=== PATIENT | male | born 1945 | race Caucasian/White ===

== ENCOUNTER 2017-03-13 08:14 | Outpatient (CLI) | payer MEDICARE, OTHER ==
[2017-03-13 14:06] LABS: BASOPHILS # (AUTO) 0.1 10^3/uL (0.0-0.1); BASOPHILS % (AUTO) 0.7 %; EOSINOPHILS # (AUTO) 0.2 10^3/uL (0.0-0.7); EOSINOPHILS % (AUTO) 2.4 %; HCT - HEMATOCRIT 49.4 % (42.0-52.0); HGB - HEMOGLOBIN 16.7 g/dL (14.0-18.0); LYMPHOCYTES # (AUTO) 2.2 10^3/uL (1.5-3.5); LYMPHOCYTES % (AUTO) 25.7 %; MEAN CORPUSCULAR HEMOGLOBIN 31.8 pg (27.0-31.0); MEAN CORPUSCULAR HGB CONC 33.9 g/dL (32.0-36.0); MEAN PLATELET VOLUME 8.8 fL (7.4-11.4); MONOCYTES # (AUTO) 0.9 10^3/uL (0.0-1.0); MONOCYTES % (AUTO) 10.3 %; NEUTROPHILS # (AUTO) 5.3 10^3/uL (1.5-6.6); NEUTROPHILS % (AUTO) 60.9 %; NUCLEATED RED BLOOD CELLS AUTO 0.2 /100WBC; RED BLOOD COUNT 5.26 10^6/uL (4.70-6.10); RED CELL DISTRIBUTION WIDTH 13.2 % (12.0-15.0); UNCORRECTED WHITE BLOOD COUNT 8.6 x10^3/uL; WHITE BLOOD COUNT 8.6 x10^3/uL (4.8-10.8)
[2017-03-13 14:52] LABS: ALBUMIN/GLOBULIN RATIO 1.7 (1.0-2.2); BILIRUBIN,TOTAL 1.1 mg/dL (0.2-1.0); BUN - BLOOD UREA NITROGEN 19 mg/dL (6-20); CALCIUM 9.3 mg/dL (8.5-10.3); CARBON DIOXIDE - CO2 26 mmol/L (21-32); CHLORIDE 104 mmol/L (101-111); CHOLESTEROL 181 mg/dL; CREATININE 0.9 mg/dL (0.6-1.2); GFR - MDRD 83 (>89); GLUCOSE 119 mg/dL (70-100); HDL CHOLESTEROL 29 mg/dL; LDL/HDL RATIO 4.5 (<3.6); POTASSIUM 4.3 mmol/L (3.5-5.0); SODIUM 135 mmol/L (135-145); TOTAL PROTEIN 7.1 g/dL (6.7-8.2); TRIGLYCERIDES 107 mg/dL; VLDL CHOLESTEROL 21 mg/dL
[2017-03-13 14:53] LABS: CHOL/HDL RATIO 6.2 (<5.0)
[2017-03-13 15:02] LABS: HEMOGLOBIN A1C 0.75 g/dL
== END 2017-03-13 08:15 | disposition home or self-care (01) ==
LOC: LAB.WCP 08:14
PROVIDERS: ATTEND Physician Assistant Medical
DX: I10 Essential (primary) hypertension (principal); Z51.81 Encounter for therapeutic drug level monitoring; Z79.899 Other long term (current) drug therapy; E78.5 Hyperlipidemia, unspecified; R73.9 Hyperglycemia, unspecified; Z12.5 Encounter for screening for malignant neoplasm of prostate
CPT/HCPCS: 36415; 80053; 80061; 83036; 84443; 85025; G0103; 84153

== ENCOUNTER 2017-09-27 08:00 | Outpatient (CLI) | payer MEDICARE, OTHER ==
[2017-09-27 13:28] LABS: ALBUMIN 4.6 g/dL (3.2-5.5); ALBUMIN/GLOBULIN RATIO 1.7 (1.0-2.2); ALKALINE PHOSPHATASE 35 IU/L (42-121); ALT ALANINE AMINOTRANSFERASE 22 IU/L (10-60); AST ASPARTATE AMINOTRANSFERASE 21 IU/L (10-42); BILIRUBIN,TOTAL 1.1 mg/dL (0.2-1.0); BUN - BLOOD UREA NITROGEN 20 mg/dL (6-20); CALCIUM 9.2 mg/dL (8.5-10.3); CARBON DIOXIDE - CO2 27 mmol/L (21-32); CHLORIDE 104 mmol/L (101-111); CHOL/HDL RATIO 6.3 (<5.0); CHOLESTEROL 157 mg/dL; CREATININE 0.8 mg/dL (0.6-1.2); GFR - MDRD 96 (>89); GLUCOSE 124 mg/dL (70-100); HDL CHOLESTEROL 25 mg/dL; LDL CHOLESTEROL,CALCULATED 113 mg/dL; LDL/HDL RATIO 4.5 (<3.6); SODIUM 137 mmol/L (135-145); TOTAL PROTEIN 7.3 g/dL (6.7-8.2); VLDL CHOLESTEROL 19 mg/dL
[2017-09-27 13:46] LABS: HB2 TOTAL 18.3 g/dL; HEMOGLOBIN A1C 0.69 g/dL; HEMOGLOBIN A1C % 5.6 % (4.6-6.2)
== END 2017-09-27 08:01 ==
LOC: LAB.WCP 08:00
PROVIDERS: ATTEND Family Medicine
DX: E78.5 Hyperlipidemia, unspecified (principal); R73.9 Hyperglycemia, unspecified; Z51.81 Encounter for therapeutic drug level monitoring; Z79.899 Other long term (current) drug therapy
CPT/HCPCS: 36415; 80053; 80061; 83036; 83721

== ENCOUNTER 2017-12-25 08:48 | Outpatient (CLI) | payer MEDICARE, OTHER ==
[2017-12-25 13:07] LABS: ALBUMIN/GLOBULIN RATIO 1.4 (1.0-2.2); ALKALINE PHOSPHATASE 32 IU/L (42-121); ALT ALANINE AMINOTRANSFERASE 20 IU/L (10-60); AST ASPARTATE AMINOTRANSFERASE 24 IU/L (10-42); BILIRUBIN,TOTAL 1.2 mg/dL (0.2-1.0); BUN - BLOOD UREA NITROGEN 22 mg/dL (6-20); CARBON DIOXIDE - CO2 26 mmol/L (21-32); CHLORIDE 105 mmol/L (101-111); CHOL/HDL RATIO 4.2 (<5.0); CHOLESTEROL 147 mg/dL; CREATININE 0.8 mg/dL (0.6-1.2); GFR - MDRD 96 (>89); GLUCOSE 100 mg/dL (70-100); HDL CHOLESTEROL 35 mg/dL; LDL CHOLESTEROL,CALCULATED 98 mg/dL; LDL/HDL RATIO 2.8 (<3.6); SODIUM 137 mmol/L (135-145); TOTAL PROTEIN 6.9 g/dL (6.7-8.2); VLDL CHOLESTEROL 14 mg/dL
[2017-12-25 13:08] LABS: HB2 TOTAL 17.1 g/dL; HEMOGLOBIN A1C 0.58 g/dL; HEMOGLOBIN A1C % 5.3 % (4.6-6.2)
== END 2017-12-25 08:49 ==
LOC: LAB.WCP 08:48
PROVIDERS: ATTEND Family Medicine
DX: R73.9 Hyperglycemia, unspecified (principal); E78.5 Hyperlipidemia, unspecified
CPT/HCPCS: 36415; 80053; 80061; 83036; 83721

== ENCOUNTER 2018-08-30 11:06 | Outpatient (CLI) | payer MEDICARE, OTHER ==
--- NOTE | 2018-08-30 12:31 | XRAY Report ---
Reason: KNEE PAIN,LEFT Procedure Date: 08/30/2018 Accession Number: [id number] / [id number] Procedure: XR - Knee 3 View LT CPT Code: FULL RESULT: EXAM: LEFT KNEE RADIOGRAPHY EXAM DATE: 08/30/2018 11:31 AM. CLINICAL HISTORY: Knee pain, left. COMPARISON: None. TECHNIQUE: 3 views. FINDINGS: Bones: Normal. No fractures or bone lesions. Joints: Normal. No effusion. No subluxations. Soft Tissues: Normal. No soft tissue swelling. IMPRESSION: Normal knee radiography. RADIA
== END 2018-08-30 11:07 | disposition home or self-care (01) ==
LOC: DI 11:06
PROVIDERS: ATTEND Family Medicine
DX: M25.562 Pain in left knee (principal)

== ENCOUNTER 2018-09-20 08:00 | Outpatient (CLI) | payer MEDICARE, OTHER ==
[2018-09-20 13:10] LABS: BASOPHILS # (AUTO) 0.1 10^3/uL (0.0-0.1); EOSINOPHILS # (AUTO) 0.4 10^3/uL (0.0-0.7); EOSINOPHILS % (AUTO) 3.3 %; HGB - HEMOGLOBIN 15.6 g/dL (14.0-18.0); LYMPHOCYTES # (AUTO) 2.1 10^3/uL (1.5-3.5); LYMPHOCYTES % (AUTO) 19.4 %; MEAN CORPUSCULAR HEMOGLOBIN 32.1 pg (27.0-31.0); MEAN CORPUSCULAR HGB CONC 34.2 g/dL (32.0-36.0); MEAN PLATELET VOLUME 9.1 fL (7.4-11.4); MONOCYTES # (AUTO) 0.9 10^3/uL (0.0-1.0); MONOCYTES % (AUTO) 8.5 %; NEUTROPHILS # (AUTO) 7.2 10^3/uL (1.5-6.6); NEUTROPHILS % (AUTO) 67.8 %; PLT - PLATELET COUNT 231 10^3/uL (130-450); RED BLOOD COUNT 4.84 10^6/uL (4.70-6.10); RED CELL DISTRIBUTION WIDTH 13.9 % (12.0-15.0); WHITE BLOOD COUNT 10.6 x10^3/uL (4.8-10.8)
[2018-09-20 13:27] LABS: ALBUMIN 4.4 g/dL (3.2-5.5); ALBUMIN/GLOBULIN RATIO 2.1 (1.0-2.2); ALKALINE PHOSPHATASE 36 IU/L (42-121); ALT ALANINE AMINOTRANSFERASE 22 IU/L (10-60); AST ASPARTATE AMINOTRANSFERASE 21 IU/L (10-42); BILIRUBIN,TOTAL 0.8 mg/dL (0.2-1.0); BUN - BLOOD UREA NITROGEN 24 mg/dL (6-20); CALCIUM 9.1 mg/dL (8.5-10.3); CARBON DIOXIDE - CO2 27 mmol/L (21-32); CHLORIDE 100 mmol/L (101-111); CHOL/HDL RATIO 3.9 (<5.0); CHOLESTEROL 144 mg/dL; CREATININE 0.9 mg/dL (0.6-1.2); GFR - MDRD 83 (>89); GLUCOSE 108 mg/dL (70-100); HDL CHOLESTEROL 37 mg/dL; LDL CHOLESTEROL,CALCULATED 92 mg/dL; LDL/HDL RATIO 2.5 (<3.6); SODIUM 135 mmol/L (135-145); TOTAL PROTEIN 6.5 g/dL (6.7-8.2); VLDL CHOLESTEROL 15 mg/dL
== END 2018-09-20 23:59 | disposition home or self-care (01) ==
LOC: LAB.WCP 08:00
PROVIDERS: ATTEND Family Medicine
DX: E78.5 Hyperlipidemia, unspecified (principal); Z12.5 Encounter for screening for malignant neoplasm of prostate; Z51.81 Encounter for therapeutic drug level monitoring; Z79.899 Other long term (current) drug therapy; I10 Essential (primary) hypertension
CPT/HCPCS: 36415; 80061; G0103; 80053; 83721; 84153; 84443; 85025

== ENCOUNTER 2019-04-24 13:11 | Outpatient (CLI) | payer MEDICARE, OTHER | END 2019-04-24 13:12 | disposition home or self-care (01) | LOC: RT 13:11 | PROVIDERS: ATTEND Internal Medicine Gastroenterology | DX: I10 Essential (primary) hypertension (principal) | CPT/HCPCS: 93005 ==

== ENCOUNTER 2019-04-29 12:47 | Day surgery (SDC) | payer MEDICARE, OTHER ==
[~2019-04-29 12:47] MED LIST: SODIUM/POTASSIUM/MAG SULFATES 354 ML PREP KIT PO SCH
[2019-04-29] MEDS ORDERED: MIDAZOLAM 2 MG/2 ML VIAL IVP ONE (12:48)
[2019-04-29] MEDS ORDERED: fentaNYL 250 MCG/5 ML VIAL IVP ONE (12:48)
[2019-04-29] MEDS ORDERED: LACTATED RINGERS 1,000 ML IV ONE (13:22)
[2019-04-29] MEDS ORDERED: LIDO GARGLE 30 ML BOTTLE ONE (13:23)
[2019-04-29] MEDS ORDERED: LIDO GARGLE 30 ML BOTTLE PO ONE (14:06)
[2019-04-29 15:20] VITALS: BP 114/67
== END 2019-04-29 12:48 | disposition home or self-care (01) ==
LOC: SDS 12:47
PROVIDERS: ATTEND Internal Medicine Gastroenterology
PROC: 0DB68ZZ Excision of Stomach, Via Natural or Artificial Opening Endoscopic (ICD-10-PCS; 2019-04-29)
PROC: 0DB38ZZ Excision of Lower Esophagus, Via Natural or Artificial Opening Endoscopic (ICD-10-PCS; 2019-04-29)
PROC: 0DJD8ZZ Inspection of Lower Intestinal Tract, Via Natural or Artificial Opening Endoscopic (ICD-10-PCS; principal; 2019-04-29 14:15)
PROC: 0DB98ZX Excision of Duodenum, Via Natural or Artificial Opening Endoscopic, Diagnostic (ICD-10-PCS; 2019-04-29 14:15)
DX: Z12.11 Encounter for screening for malignant neoplasm of colon (principal); K21.9 Gastro-esophageal reflux disease without esophagitis; R10.13 Epigastric pain; K29.70 Gastritis, unspecified, without bleeding; K57.30 Diverticulosis of large intestine without perforation or abscess without bleeding; K22.8 Other specified diseases of esophagus; I10 Essential (primary) hypertension; K31.7 Polyp of stomach and duodenum; E78.5 Hyperlipidemia, unspecified; Z85.828 Personal history of other malignant neoplasm of skin; Z87.891 Personal history of nicotine dependence; Z86.010 Personal history of colon polyps
CPT/HCPCS: 43239; 88305; A9270; G0105; J3010; J7120

== ENCOUNTER 2020-02-06 08:00 | Outpatient (CLI) | payer MEDICARE, OTHER ==
[2020-02-06 11:36] LABS: BASOPHILS # (AUTO) 0.1 10^3/uL (0.0-0.1); BASOPHILS % (AUTO) 0.7 %; EOSINOPHILS # (AUTO) 0.2 10^3/uL (0.0-0.7); EOSINOPHILS % (AUTO) 2.3 %; LYMPHOCYTES # (AUTO) 2.3 10^3/uL (1.5-3.5); LYMPHOCYTES % (AUTO) 31.1 %; MEAN CORPUSCULAR HEMOGLOBIN 31.1 pg (27.0-31.0); MEAN CORPUSCULAR HGB CONC 32.7 g/dL (32.0-36.0); MEAN CORPUSCULAR VOLUME 95.1 fL (80.0-94.0); MEAN PLATELET VOLUME 10.6 fL (7.4-11.4); MONOCYTES # (AUTO) 0.9 10^3/uL (0.0-1.0); MONOCYTES % (AUTO) 11.9 %; NEUTROPHILS % (AUTO) 53.6 %; PLT - PLATELET COUNT 256 10^3/uL (130-450); RED BLOOD COUNT 5.14 10^6/uL (4.70-6.10); RED CELL DISTRIBUTION WIDTH 12.8 % (12.0-15.0); WHITE BLOOD COUNT 7.4 x10^3/uL (4.8-10.8)
[2020-02-06 11:51] LABS: ALBUMIN 4.7 g/dL (3.2-5.5); ALBUMIN/GLOBULIN RATIO 2.1 (1.0-2.2); ALKALINE PHOSPHATASE 38 IU/L (42-121); ALT ALANINE AMINOTRANSFERASE 23 IU/L (10-60); AST ASPARTATE AMINOTRANSFERASE 21 IU/L (10-42); BUN - BLOOD UREA NITROGEN 19 mg/dL (6-20); CALCIUM 9.4 mg/dL (8.5-10.3); CARBON DIOXIDE - CO2 26 mmol/L (21-32); CHLORIDE 103 mmol/L (101-111); CHOL/HDL RATIO 4.5 (<5.0); CHOLESTEROL 162 mg/dL; CREATININE 0.8 mg/dL (0.6-1.2); GLUCOSE 116 mg/dL (70-100); HDL CHOLESTEROL 36 mg/dL; LDL CHOLESTEROL,CALCULATED 109 mg/dL; SODIUM 136 mmol/L (135-145); TOTAL PROTEIN 6.9 g/dL (6.7-8.2); VLDL CHOLESTEROL 17 mg/dL
== END 2020-02-06 23:59 | disposition home or self-care (01) ==
LOC: LAB.WCP 08:00
PROVIDERS: ATTEND Family Medicine
DX: I10 Essential (primary) hypertension (principal); E78.5 Hyperlipidemia, unspecified
CPT/HCPCS: 36415; 80053; 80061; 83721; 85025

== ENCOUNTER 2021-02-11 08:51 | Outpatient (CLI) | payer MEDICARE, BC ==
[2021-02-11 11:45] LABS: BASOPHILS % (AUTO) 0.7 %; EOSINOPHILS # (AUTO) 0.1 10^3/uL (0.0-0.7); EOSINOPHILS % (AUTO) 1.3 %; HCT - HEMATOCRIT 47.2 % (42.0-52.0); HGB - HEMOGLOBIN 15.7 g/dL (14.0-18.0); LYMPHOCYTES # (AUTO) 1.5 10^3/uL (1.5-3.5); MEAN CORPUSCULAR HEMOGLOBIN 31.8 pg (27.0-31.0); MEAN CORPUSCULAR HGB CONC 33.3 g/dL (32.0-36.0); MEAN CORPUSCULAR VOLUME 95.5 fL (80.0-94.0); MEAN PLATELET VOLUME 10.7 fL (7.4-11.4); MONOCYTES # (AUTO) 0.7 10^3/uL (0.0-1.0); MONOCYTES % (AUTO) 11.5 %; NEUTROPHILS # (AUTO) 3.7 10^3/uL (1.5-6.6); PLT - PLATELET COUNT 231 10^3/uL (130-450); RED BLOOD COUNT 4.94 10^6/uL (4.70-6.10); RED CELL DISTRIBUTION WIDTH 12.7 % (12.0-15.0); WHITE BLOOD COUNT 6.1 x10^3/uL (4.8-10.8)
[2021-02-11 12:04] LABS: ALBUMIN 4.5 g/dL (3.2-5.5); ALBUMIN/GLOBULIN RATIO 1.8 (1.0-2.2); ALKALINE PHOSPHATASE 33 IU/L (42-121); ALT ALANINE AMINOTRANSFERASE 25 IU/L (10-60); AST ASPARTATE AMINOTRANSFERASE 21 IU/L (10-42); BILIRUBIN,TOTAL 0.9 mg/dL (0.2-1.0); BUN - BLOOD UREA NITROGEN 21 mg/dL (6-20); CALCIUM 9.3 mg/dL (8.5-10.3); CARBON DIOXIDE - CO2 27 mmol/L (21-32); CHLORIDE 103 mmol/L (101-111); CHOL/HDL RATIO 4.1 (<5.0); CHOLESTEROL 157 mg/dL; CREATININE 0.9 mg/dL (0.6-1.2); GFR - MDRD 82 (>89); GLUCOSE 125 mg/dL (70-100); HDL CHOLESTEROL 38 mg/dL; LDL CHOLESTEROL,CALCULATED 106 mg/dL; LDL/HDL RATIO 2.8 (<3.6); POTASSIUM 4.4 mmol/L (3.5-5.0); SODIUM 137 mmol/L (135-145); TRIGLYCERIDES 63 mg/dL; VLDL CHOLESTEROL 13 mg/dL
[2021-02-11 12:15] LABS: THYROID STIMULATING HORMONE 1.99 uIU/mL (0.34-5.60)
== END 2021-02-11 08:52 | disposition home or self-care (01) ==
LOC: LAB.N 08:51
PROVIDERS: ATTEND Nurse Practitioner
DX: I10 Essential (primary) hypertension (principal); E78.5 Hyperlipidemia, unspecified; Z12.5 Encounter for screening for malignant neoplasm of prostate
CPT/HCPCS: 36415; 80053; 80061; 81001; 83721; 84153; 84443; 85025; 87086

== ENCOUNTER 2021-02-11 08:57 | Outpatient (CLI) | payer MEDICARE, BC ==
--- NOTE | 2021-02-11 16:40 | XRAY Report ---
PROCEDURE: Knee 4 View RT INDICATIONS: RIGHT KNEE PAIN TECHNIQUE: 4 views of the right knee(s) were acquired. COMPARISON: None. FINDINGS: Bones: No fractures or dislocations. No suspicious bony lesions. Medial femoral tibial compartment joint space narrowing and subchondral sclerosis is seen. Soft tissues: Small to moderate suprapatellar joint effusion is noted. No suspicious soft tissue josé antonio cifications. 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 No fracture or dislocation. Small to moderate suprapatellar joint effusion. Reviewed by: Arnaldo Willard MD on 02/11/2021 4:38 PM PDT Approved by: Arnaldo Willard MD on 02/11/2021 4:38 PM PDT Station ID: [id number]
== END 2021-02-11 08:58 | disposition home or self-care (01) ==
LOC: DI.N 08:57
PROVIDERS: ATTEND Nurse Practitioner
DX: M17.11 Unilateral primary osteoarthritis, right knee (principal); M25.461 Effusion, right knee; I10 Essential (primary) hypertension; E78.5 Hyperlipidemia, unspecified; Z12.5 Encounter for screening for malignant neoplasm of prostate
CPT/HCPCS: 36415; 73564; 80053; 80061; 84443; 85025; G0103; 81001; 83721; 84153; 87086

== ENCOUNTER 2021-04-13 13:30 | Emergency (ER) | payer MEDICARE, OTHER ==
[2021-04-13 14:21] LABS: BASOPHILS # (AUTO) 0.1 10^3/uL (0.0-0.1); BASOPHILS % (AUTO) 0.5 %; EOSINOPHILS % (AUTO) 0.4 %; HGB - HEMOGLOBIN 16.2 g/dL (14.0-18.0); LYMPHOCYTES # (AUTO) 1.5 10^3/uL (1.5-3.5); LYMPHOCYTES % (AUTO) 15.1 %; MEAN CORPUSCULAR HEMOGLOBIN 33.1 pg (27.0-31.0); MEAN CORPUSCULAR HGB CONC 34.5 g/dL (32.0-36.0); MEAN CORPUSCULAR VOLUME 95.9 fL (80.0-94.0); MEAN PLATELET VOLUME 10.2 fL (7.4-11.4); MONOCYTES # (AUTO) 0.9 10^3/uL (0.0-1.0); MONOCYTES % (AUTO) 8.7 %; NEUTROPHILS # (AUTO) 7.6 10^3/uL (1.5-6.6); NEUTROPHILS % (AUTO) 74.5 %; PLT - PLATELET COUNT 236 10^3/uL (130-450); RED CELL DISTRIBUTION WIDTH 12.7 % (12.0-15.0); WHITE BLOOD COUNT 10.2 x10^3/uL (4.8-10.8)
--- NOTE | 2021-04-13 14:25 | ED Physician Documentation ---
PD HPI GI BLEED - Stated complaint Stated Complaint: BLOOD IN STOOL - Chief complaint Chief Complaint: Abd Pain - History obtained from History obtained from: Patient - History of Present Illness Timing - onset: Today Timing - duration: Days (1) Timing - details: Gradual onset Pain level max: 3 Pain level now: 3 Associated symptoms: BRBPR, Diarrhea, Abdominal pain (mild LLQ). No: Maroon stool, Black/tarry stool, Constipation Contributing factors: No: Sick contact, Bad food, Travel, Recent antibiotics, Alcohol use, Anticoagulated - Additional information Additional information: 76-year-old male states that he had bright red blood per rectum today. Denies any recent antibiotics. Not anticoagulated. Has a history of diverticulosis on colonoscopy. Last colonoscopy 2 years ago was otherwise normal. Colonoscopy 5 years before that had a polyp with removal. He states he has mild abdominal discomfort. Nothing makes it better or worse. Review of Systems Constitutional: denies: Fever, Chills GI: denies: Vomiting, Diarrhea Skin: denies: Rash Musculoskeletal: denies: Neck pain, Back pain Neurologic: denies: Headache PD PAST MEDICAL HISTORY - Past Medical History Past Medical History: Yes Cardiovascular: Hypertension, High cholesterol, Murmur Respiratory: None Neuro: None Endocrine/Autoimmune: None GI: GERD, Other : None HEENT: None Psych: None Musculoskeletal: Osteoarthritis Derm: None Other Past Medical History: severe diverticulosis per colonoscopy - Past Surgical History Past Surgical History: Yes General: Colonoscopy - Present Medications Home Medications: Ambulatory Orders Medication Instructions Recorded Confirmed Simvastatin 40 mg PO DAILY 04/26/19 04/13/21 ramipriL [Ramipril] 5 mg PO BID 04/26/19 04/13/21 Omeprazole Magnesium [Prilosec] 10 mg ORAL DAILY 04/29/19 04/13/21 - Allergies Allergies/Adverse Reactions: Allergies Allergy/AdvReac Type Severity Reaction Status Date / Time codeine AdvReac Nausea Verified 04/13/21 13:53 metformin [From Glucophage] AdvReac Unknown Verified 04/13/21 13:53 oxycodone AdvReac Nausea Verified 04/13/21 13:53 - Social History Does the pt smoke?: No Smoking Status: Former smoker Does the pt drink ETOH?: Yes ETOH Use: Beer Does the pt have substance abuse?: No - Immunizations Immunizations are current?: Yes PD ED PE NORMAL - Vitals Vital signs reviewed: Yes - General General: Alert and oriented X 3, No acute distress - HEENT HEENT: Moist mucous membranes - Neck Neck: Supple, no meningeal sign - Cardiac Cardiac: RRR - Respiratory Respiratory: No respiratory distress, Clear bilaterally - Abdomen Abdomen: Soft, Non tender, Non distended - Male Male : Pt declined - Derm Derm: Warm and dry - Neuro Neuro: Alert and oriented X 3 - Psych Psych: Normal mood, Normal affect Results - Vitals Vitals: Vital Signs - 24 hr 04/13/21 04/13/21 04/13/21 13:53 14:18 16:07 Temperature 36.9 C 98.5 C H 36.6 C Heart Rate 86 79 73 Respiratory 16 17 16 Rate Blood Pressure 164/80 H 139/86 H 149/82 H O2 Saturation 97 98 98 04/13/21 17:15 Temperature Heart Rate 76 Respiratory 16 Rate Blood Pressure 149/76 H O2 Saturation 97 Oxygen O2 Source Room air - Labs Labs: Laboratory Tests 04/13/21 04/13/21 04/13/21 14:12 14:12 14:12 WBC 10.2 RBC 4.90 Hgb 16.2 Hct 47.0 MCV 95.9 H MCH 33.1 H MCHC 34.5 RDW 12.7 Plt Count 236 MPV 10.2 Neut # (Auto) 7.6 H Lymph # (Auto) 1.5 [place] # (Auto) 0.9 Eos # (Auto) 0.0 Baso # (Auto) 0.1 Absolute Nucleated RBC 0.00 Nucleated RBC % 0.0 PT 12.1 INR 1.1 APTT 29.5 Sodium 138 Potassium 4.0 Chloride 103 Carbon Dioxide 26 Anion Gap 9.0 BUN 23 H Creatinine 0.9 Estimated GFR (MDRD) 82 L Glucose 182 H Calcium 9.3 Total Bilirubin 0.8 AST 18 ALT 25 Alkaline Phosphatase 39 L Total Protein 7.0 Albumin 4.5 Globulin 2.5 Albumin/Globulin Ratio 1.8 Lipase 30 Urine Color Urine Clarity Urine pH Ur Specific [place] Urine Protein Urine Glucose (UA) Urine Ketones Urine Occult Blood Urine Nitrite Urine Bilirubin Urine Urobilinogen Ur Leukocyte Esterase Ur Microscopic Review Urine Culture Comments 04/13/21 15:25 WBC RBC Hgb Hct MCV MCH MCHC RDW Plt Count MPV Neut # (Auto) Lymph # (Auto) [place] # (Auto) Eos # (Auto) Baso # (Auto) Absolute Nucleated RBC Nucleated RBC % PT INR APTT Sodium Potassium Chloride Carbon Dioxide Anion Gap BUN Creatinine Estimated GFR (MDRD) Glucose Calcium Total Bilirubin AST ALT Alkaline Phosphatase Total Protein Albumin Globulin Albumin/Globulin Ratio Lipase Urine Color YELLOW Urine Clarity CLEAR Urine pH 5.5 Ur Specific [place] >=1.030 H Urine Protein NEGATIVE Urine Glucose (UA) NEGATIVE Urine Ketones NEGATIVE Urine Occult Blood NEGATIVE Urine Nitrite NEGATIVE Urine Bilirubin NEGATIVE Urine Urobilinogen 0.2 (NORMAL) Ur Leukocyte Esterase NEGATIVE Ur Microscopic Review NOT INDICATED Urine Culture Comments NOT INDICATED - Rads (name of study) CT abdomen pelvis Radiology: Final report received, EMP read contemporaneously, See rad report PD MEDICAL DECISION MAKING - ED course Complexity details: reviewed results, re-evaluated patient, considered differential, d/w patient ED course: Patient with extensive diverticulosis, but no diverticulitis. Appears to likely be have any bleeding diverticulum. Patient is hemodynamically stable. Hemoglobin is normal. We will have him follow-up with his doctor for further care. Not on blood thinners. Asymptomatic here. Recommend repeat colonoscopy once his symptoms have resolved. Patient counseled regarding signs and symptoms for which I believe and urgent re-evaluation would be necessary. Patient with g ood understanding of and agreement to plan and is comfortable going home at this time This document was made in part using voice recognition software. While efforts are made to proofread this document, sound alike and grammatical errors may occur. Extensive sigmoid and descending colon diverticulosis without diverticulitis. Linear, focal, intraluminal hyperdense material within the left lower quadrant which may be a bleeding diverticulum, neoplasm or ingested material. Colonoscopy is recommended. Umbilical and inguinal hernias. Departure - Departure Disposition: 01 Home, Self Care Clinical Impression: BRBPR (bright red blood per rectum) Condition: Good Instructions: ED Hematochezia Stable Follow-Up: Ava Hatch ARNP [Primary Care Provider] - Within 1 week Comments: Follow up with your doctor for further care in 1 week. You should have a repeat colonoscopy once the bleeding has resolved. Return if you worsen.
[2021-04-13 14:28] LABS: INR 1.1 (0.8-1.2); PT - PROTHROMBIN TIME 12.1 secs (9.9-12.6)
[2021-04-13 14:34] LABS: ALBUMIN 4.5 g/dL (3.2-5.5); ALBUMIN/GLOBULIN RATIO 1.8 (1.0-2.2); BILIRUBIN,TOTAL 0.8 mg/dL (0.2-1.0); CALCIUM 9.3 mg/dL (8.5-10.3); CREATININE 0.9 mg/dL (0.6-1.2)
[2021-04-13 14:35] LABS: PARTIAL THROMBOPLASTIN TIME 29.5 secs (24.9-33.3)
[2021-04-13] MEDS ORDERED: IOVERSOL 320 100 ML VIAL IVP ONE ×2 (14:37→19:39)
[2021-04-13 15:29] LABS: BILIRUBIN,URINE NEGATIVE (NEGATIVE); GLUCOSE, URINE (UA) NEGATIVE (NEGATIVE); KETONES,URINE (UA) NEGATIVE (NEGATIVE); LEUKOCYTE ESTERASE, URINE NEGATIVE (NEGATIVE); NITRITE,URINE NEGATIVE (NEGATIVE); OCCULT BLOOD,URINE NEGATIVE (NEGATIVE); PH,URINE 5.5 PH (5.0-7.5); PROTEIN,URINE NEGATIVE (NEGATIVE); UROBILINOGEN,URINE 0.2 (NORMAL) E.U./dL (NORMAL)
[2021-04-13 15:33] LABS: CLARITY,URINE CLEAR (CLEAR)
--- NOTE | 2021-04-13 16:52 | CT Report ---
PROCEDURE: Abdomen/Pelvis W INDICATIONS: LLQ abd pain, poss diverticulitis CONTRAST: IV CONTRAST: Optiray 320 ml: 100 PO CONTRAST: *NO PO CONTRAST TECHNIQUE: After the administration of IV contrast, 5 mm thick sections acquired from the diaphragms to the symp hysis. 5 mm thick coronal and sagittal reformats were acquired. For radiation dose reduction, the f ollowing was used: automated exposure control, adjustment of mA and/or kV according to patient size. COMPARISON: None. FINDINGS: Image quality: Excellent. ABDOMEN: Lung bases: Lung bases are clear. Heart size is normal. Solid organs: Liver and spleen are normal in size and enhancement. Gallbladder is decompressed [place] iary system is non dilated. Pancreas enhances normally. No adrenal nodules. Kidneys demonstrate no rmal size and enhancement, without hydronephrosis. Bilateral parapelvic cysts. Peritoneum and bowel: There is extensive diverticulosis of the distal descending colon throughout th e sigmoid colon. There are no focal pericolonic inflammatory changes. At the descending sigmoid junct ion, there is intraluminal hyperdensity adjacent to focal area of colonic wall thickening. No extralu ivana gas or pericolonic fluid collection. A normal appendix is present. The rest of the bowel loops appear normal. Nodes and vessels: No retroperitoneal or mesenteric adenopathy by size criteria. Aorta and inferior vena cava are normal in size. Moderate atherosclerotic abdominal aortic calcification. Miscellaneous: Small fat-containing umbilical hernia. PELVIS: Genitourinary: Bladder wall thickness is normal. Miscellaneous: Small bilateral fat-containing inguinal hernias. No pelvic adenopathy. Bones: No suspicious bony lesions. Degenerative disc and endplate changes throughout the spine. No v ertebral body compression fractures. IMPRESSION: 1. Extensive sigmoid and descending colon diverticulosis without acute diverticulitis. 2. There is linear, focal, intraluminal hyperdense material within the left lower quadrant colon whic h may be bleeding diverticulum, neoplasm, or ingested material. Colonoscopy is recommended when the p atient is able. 3. Umbilical and inguinal hernias. 4. Findings called to the emergency room and discussed with Dr. Patterson at 4:47 hours. Reviewed by: Suzan Cox MD on 04/13/2021 4:50 PM PDT Approved by: Suzan Cox MD on 04/13/2021 4:50 PM PDT Station ID: [id number]
[2021-04-13 17:16] VITALS: BP 149/76
== END 2021-04-13 17:56 | disposition home or self-care (01) ==
LOC: ED 13:30
DX: K92.1 Melena (principal); I10 Essential (primary) hypertension; Z87.891 Personal history of nicotine dependence
CPT/HCPCS: 36415; 74177; 80053; 81003; 83690; 85025; 85610; 85730; 99284; Q9967; 81001; 87086

== ENCOUNTER 2023-01-18 10:23 | Outpatient (CLI) | payer MEDICARE, OTHER ==
--- NOTE | 2023-01-18 15:22 | Ultrasound Report ---
PROCEDURE: Head or Neck Soft Tissue INDICATIONS: DYSPHAGIA TECHNIQUE: Real-time scanning was performed of the thyroid gland, with image documentation. COMPARISON: None FINDINGS: Right: Thyroid lobe measures 4.1 x 1.7 x 1.8 cm, and is homogeneous in echotexture. Left: Thyroid lobe measures 5.0 x 1.6 x 1.7 cm, and is homogenous in echotexture. Isthmus: Size mm thick. Nodule number: One Location: Right inferior This is located inferior to the thyroid gland and measures 1.4 x 0.8 x 0.8 cm. Nodule number: 2 Location: Left inferior Size: 0.5 x 0.6 x 0.5 cm. Composition: Solid. Echogenicity: Hypoechoic. Shape: wider than tall. Margins: Smooth (0 points). Echogenic foci: None (0 points). Total points: 4 ACR TI-RADS category: 4. Nodule number: 3 Location: Left inferior Size: 0.6 x 0.4 x 0.6 cm. Composition: Solid. Echogenicity: Hypoechoic. Shape: wider than tall. Margins: Smooth (0 points). Echogenic foci: None (0 points). Total points: 4 ACR TI-RADS category: 4. IMPRESSION: Lesion 1 appears slightly inferior to the thyroid gland could represent a lymph node or potentially p arathyroid adenoma. If the latter is of clinical concern, further evaluation with nuclear scintigraph y exam or CT protocol for adenoma is recommended. Lesions 2 and 3 are considered category 4. Secondary to size, no additional follow-up is recommended. ACR TI-RADS definitions and recommendations: TI-RADS 1 (benign): 0 points. FNA not needed. TI-RADS 2 (not suspicious): 2 points. FNA not needed. TI-RADS 3 (mildly suspicious): 3 points. "FNA if 2.5 cm or larger, follow up if 1.5 cm or larger (at 1, 3, and 5 years). TI-RADS 4 (moderately suspicious): 4-6 points. "FNA if 1.5 cm or larger, follow up if 1 cm or larger (at 1, 2, 3, and 5 years). TI-RADS 5 (highly suspicious): 7 points or more. "FNA if 1 cm or larger, follow up if 0.5 cm or larger (every year for 5 years). Reviewed by: Kelly Foreman MD on 01/18/2023 3:21 PM PDT Approved by: Kelly Foreman MD on 01/18/2023 3:21 PM PDT Station ID: [id number]
== END 2023-01-18 10:24 | disposition home or self-care (01) ==
LOC: DI 10:23
PROVIDERS: ATTEND Nurse Practitioner
DX: E04.2 Nontoxic multinodular goiter (principal)

== ENCOUNTER 2023-02-08 07:26 | Outpatient (CLI) | payer MEDICARE, OTHER ==
[2023-02-08 07:50] LABS: BASOPHILS # (AUTO) 0.1 10^3/uL (0.0-0.1); BASOPHILS % (AUTO) 0.7 %; EOSINOPHILS # (AUTO) 0.2 10^3/uL (0.0-0.7); EOSINOPHILS % (AUTO) 2.1 %; HCT - HEMATOCRIT 46.6 % (42.0-52.0); HGB - HEMOGLOBIN 15.9 g/dL (14.0-18.0); LYMPHOCYTES # (AUTO) 2.2 10^3/uL (1.5-3.5); MEAN CORPUSCULAR HEMOGLOBIN 32.8 pg (27.0-31.0); MEAN CORPUSCULAR HGB CONC 34.1 g/dL (32.0-36.0); MEAN CORPUSCULAR VOLUME 96.1 fL (80.0-94.0); MEAN PLATELET VOLUME 9.8 fL (7.4-11.4); MONOCYTES # (AUTO) 0.9 10^3/uL (0.0-1.0); MONOCYTES % (AUTO) 10.9 %; NEUTROPHILS # (AUTO) 5.2 10^3/uL (1.5-6.6); NEUTROPHILS % (AUTO) 59.7 %; PLT - PLATELET COUNT 268 10^3/uL (130-450); RED BLOOD COUNT 4.85 10^6/uL (4.70-6.10); RED CELL DISTRIBUTION WIDTH 12.6 % (12.0-15.0); WHITE BLOOD COUNT 8.6 x10^3/uL (4.8-10.8)
[2023-02-08 07:53] LABS: ALBUMIN 4.4 g/dL (3.2-5.5); ALBUMIN/GLOBULIN RATIO 2.2 (1.0-2.2); ALKALINE PHOSPHATASE 39 IU/L (42-121); ALT ALANINE AMINOTRANSFERASE 21 IU/L (10-60); AST ASPARTATE AMINOTRANSFERASE 18 IU/L (10-42); BILIRUBIN,TOTAL 0.9 mg/dL (0.2-1.0); BUN - BLOOD UREA NITROGEN 16 mg/dL (6-20); CALCIUM 9.6 mg/dL (8.5-10.3); CARBON DIOXIDE - CO2 30 mmol/L (21-32); CHLORIDE 103 mmol/L (101-111); CHOLESTEROL 155 mg/dL; CREATININE 0.9 mg/dL (0.6-1.3); GFR - MDRD 82 (>89); GLUCOSE 128 mg/dL (74-104); HDL CHOLESTEROL 39 mg/dL; LDL CHOLESTEROL,CALCULATED 98 mg/dL; LDL/HDL RATIO 2.5 (<3.6); POTASSIUM 4.4 mmol/L (3.5-4.5); SODIUM 136 mmol/L (135-145); TOTAL PROTEIN 6.4 g/dL (6.4-8.9); TRIGLYCERIDES 89 mg/dL (48-352); VLDL CHOLESTEROL 18 mg/dL
[2023-02-08 08:09] LABS: THYROID STIMULATING HORMONE 1.82 uIU/mL (0.34-5.60)
== END 2023-02-08 07:27 | disposition home or self-care (01) ==
LOC: LAB 07:26
PROVIDERS: ATTEND Nurse Practitioner
DX: I10 Essential (primary) hypertension (principal); Z13.220 Encounter for screening for lipoid disorders; E04.2 Nontoxic multinodular goiter
CPT/HCPCS: 36415; 80053; 80061; 83721; 84439; 84443; 85025

== ENCOUNTER 2023-02-10 10:25 | Outpatient (CLI) | payer MEDICARE, OTHER ==
--- NOTE | 2023-02-10 15:38 | CT Report ---
PROCEDURE: SOFT TISSUE NECK W/WO INDICATIONS: DYSPHAGIA( PARATHYROID PROTOCOL) CONTRAST: 100ml omni 300 TECHNIQUE: Before and after the administration of intravenous contrast, 2.0 mm axial sections acquired through t he neck and down to the lloyd. Additional 2.0 mm coronal and sagittal reformats were generated of t he contrast enhanced images. For radiation dose reduction, the following was used: automated exposu re control, adjustment of mA and/or kV according to patient size. COMPARISON: Ultrasound 01/18/2023 FINDINGS: Image quality: Excellent. Parathyroid: In the posterior aspect of the inferior right thyroid lobe is a 4 mm hypoenhancing nodu le, parathyroid adenoma is not excluded. The 1.4 cm lesion described on ultrasound that is deep to th e inferior right thyroid lobe is not appreciated. Thyroid: There is a 5 mm low-density lesion within the inferior left thyroid lobe, likely correspond ing to the nodule seen on prior ultrasound. Lymph nodes: No enlarged lymph nodes seen throughout the neck. Vessels: Visualized vasculature appears patent. Atherosclerotic vascular calcifications. Neck spaces: The oropharynx, nasopharynx, and pharynx demonstrate no mucosal lesions. The vocal cor ds, false vocal cords, pyriform sinuses, epiglottis, vallecula, and tongue base all appear normal. E xtramucosal spaces appear unremarkable. Glands: The parotid and submandibular glands appear normal. Miscellaneous: Visualized lungs appear clear. Superficial soft tissues appear normal. Bones: No suspicious bony lesions. Degenerative changes of the cervical spine. Visualized sinuses a nd mastoids appear unremarkable. IMPRESSION: 1.In the posterior aspect of the right inferior thyroid lobe is a 4 mm hypoenhancing nodule, parathyr oid adenoma is not excluded. 2.The 1.4 cm lesion described on ultrasound is not seen. 3.There is a 5 mm low-density lesion within the left thyroid lobe, likely corresponding to the nodule seen on ultrasound. Reviewed by: Bonilla Mccullough MD on 02/10/2023 3:37 PM PDT Approved by: Bonilla Mccullough MD on 02/10/2023 3:37 PM PDT Station ID: [id number]
[2023-02-10] MEDS ORDERED: iohexoL-300 100 ML VIAL IVP ONE (19:32)
== END 2023-02-10 10:26 | disposition home or self-care (01) ==
LOC: DI 10:25
PROVIDERS: ATTEND Nurse Practitioner
DX: R13.10 Dysphagia, unspecified (principal); E04.2 Nontoxic multinodular goiter
CPT/HCPCS: 70492; Q9967

== ENCOUNTER 2023-03-03 07:49 | Outpatient (CLI) | payer MEDICARE, OTHER | END 2023-03-03 07:50 | disposition home or self-care (01) | LOC: LAB 07:49 | PROVIDERS: ATTEND Nurse Practitioner | DX: Z51.81 Encounter for therapeutic drug level monitoring (principal); Z79.899 Other long term (current) drug therapy | CPT/HCPCS: 36415; 82947 ==

== ENCOUNTER 2023-07-20 08:04 | Outpatient (CLI) | payer MEDICARE, OTHER ==
[2023-07-20 11:14] LABS: ESTIMATED AVERAGE GLUCOSE 114 mg/dL (70-100); HEMOGLOBIN A1c% 5.6 % (4.27-6.07)
== END 2023-07-20 08:05 | disposition home or self-care (01) ==
LOC: LAB 08:04
PROVIDERS: ATTEND Nurse Practitioner
DX: E11.9 Type 2 diabetes mellitus without complications (principal)
CPT/HCPCS: 36415; 83036

== ENCOUNTER 2023-07-29 08:30 | Outpatient (CLI) | payer MEDICARE, OTHER ==
--- NOTE | 2023-07-30 13:08 | Ultrasound Report ---
PROCEDURE: Soft Tissue Head or Neck INDICATIONS: DYSPHAGIA, THYROID NODULE TECHNIQUE: Real-time scanning was performed of the thyroid gland, with image documentation. COMPARISON: Thyroid ultrasound on January 18, 2023. Parathyroid ultrasound on February 05, 2023. FINDINGS: Right: Thyroid lobe measures 4 x 1.8 x 1.6 cm, and is homogeneous in echotexture. Left: Thyroid lobe measures 4.2 x 1.6 x 1.7 cm, and is homogenous in echotexture. Isthmus: 0.4 cm thick. Nodule number: One Location: Right inferior No longer seen Nodule number: Two Location: Left inferior Size: 0.5 x 0.5 x 0.5 cm, previously 0.6 x 0.5 x 0.5 cm. Composition: Solid (2 points). Echogenicity: Hypoechoic (2 points). Shape: wider than tall (0 points). Margins: Smooth (0 points). Echogenic foci: None (0 points). Total points: 4 ACR TI-RADS category: TI-RADS 4: Moderately suspicious. Nodule number: Three Location: Left inferior Size: 0.5 x 0.6 x 0.3 cm, previously 0.6 x 0.5 x 0.6 cm. Composition: Solid (2 points). Echogenicity: Hypoechoic (2 points). Shape: wider than tall (0 points). Margins: Smooth (0 points). Echogenic foci: None (0 points). Total points: 4 ACR TI-RADS category: TI-RADS 4: Moderately suspicious. IMPRESSION: 1.Previously described nodule 1 is no longer seen. 2.Nodules 2 and 3 are category 4. Secondary to size, no additional follow-up recommended. ACR TI-RADS definitions and recommendations: TI-RADS 1 (benign): 0 points. FNA not needed. TI-RADS 2 (not suspicious): 2 points. FNA not needed. TI-RADS 3 (mildly suspicious): 3 points. "FNA if 2.5 cm or larger, follow up if 1.5 cm or larger (at 1, 3, and 5 years). TI-RADS 4 (moderately suspicious): 4-6 points. "FNA if 1.5 cm or larger, follow up if 1 cm or larger (at 1, 2, 3, and 5 years). TI-RADS 5 (highly suspicious): 7 points or more. "FNA if 1 cm or larger, follow up if 0.5 cm or larger (every year for 5 years). Reviewed by: Latisha Pillai MD on 07/30/2023 1:07 PM PST Approved by: Latisha Pillai MD on 07/30/2023 1:07 PM PST Station ID: [id number]
== END 2023-07-29 08:31 | disposition home or self-care (01) ==
LOC: DI 08:30
PROVIDERS: ATTEND Nurse Practitioner
DX: E04.2 Nontoxic multinodular goiter (principal); R13.10 Dysphagia, unspecified

== ENCOUNTER 2023-11-30 06:26 | Day surgery (SDC) | payer MEDICARE, OTHER ==
[2023-11-30] MEDS: LACTATED RINGERS 1,000 ML IV ONE ×2 (06:39→08:06)
[2023-11-30] MEDS: PROPARACAINE 0.5% OPHTH DROPS 15 ML ONE (06:45)
[2023-11-30] MEDS: KETOROLAC 0.45% OPHTH DROPS ONE (06:46)
[2023-11-30] MEDS: CYCLOPENTOLATE 1% OPHTH DROPS 2 ML ONE (06:47)
[2023-11-30] MEDS: PHENYLEPHRINE 2.5% OPHTH 2 ML DROPS ONE (06:48)
[2023-11-30] MEDS ORDERED: EPINEPHrine 1 MG/ML AMP ONE (06:55)
[2023-11-30] MEDS ORDERED: ACETYLCHOLINE 20 MG/2 ML KIT IO ONE (06:56)
[2023-11-30] MEDS ORDERED: BSS/LIDOCAINE/EPINEPHRINE 1 ML VIAL ONE (06:56)
[2023-11-30] MEDS ORDERED: BRIMONIDINE 0.2% OPHTH DROPS 5 ML ONE (06:56)
[2023-11-30] MEDS ORDERED: TRIAMCIN/MOXIFLOX OPHTHALMIC 0.6 ML VIAL IO ONE (06:56)
[2023-11-30] MEDS ORDERED: TIMOLOL 0.5% OPHTH DROPS ONE (06:56)
[2023-11-30] MEDS: BRIMONIDINE 0.2% OPHTH DROPS 5 ML OPTH ONE (07:11)
[2023-11-30] MEDS: PROPARACAINE 0.5% OPHTH DROPS 15 ML LEFTEYE ONE (07:12)
[2023-11-30] MEDS: VANCOMYCIN OPHTH (TOPICAL) 10 MG/ML SYRINGE TOP ONE (07:12)
[2023-11-30] MEDS: TRIAMCIN/MOXIFLOX OPHTHALMIC 0.6 ML VIAL IO ONE (07:12)
[2023-11-30] MEDS: TIMOLOL 0.5% OPHTH DROPS OPTH ONE (07:12)
[2023-11-30] MEDS: BSS/LIDOCAINE/EPINEPHRINE 1 ML SYRINGE IO ONE (07:12)
[2023-11-30] MEDS: EPINEPHrine 1 MG/ML AMP IR ONE (07:12)
[2023-11-30] MEDS ORDERED: MIDAZOLAM 2 MG/2 ML VIAL ONE ×2 (07:15→07:48)
--- NOTE | 2023-11-30 07:26 | ANESTHESIA ---
Pre-Anesthesia VS, & Labs - Diagnosis LEFT EYE CATARACT - Procedure LEFT EYE CATARACT EXTRACTION AND IOL Vital Signs: Temp Pulse Resp BP Pulse Ox O2 Flow Rate 37.2 C 61 12 136/76 H 99 11/30/23 06:30 11/30/23 06:30 11/30/23 06:30 11/30/23 06:30 11/30/23 06:30 Height: 5 ft 8 in Weight (kg): 83 kg Body Mass Index: 27.8 BMI Classification: Overweight - NPO >8 hours Home Medications and Allergies Simvastatin 40 mg PO HS 04/26/19 ramipriL [Ramipril] 5 mg PO BID 04/26/19 Omeprazole Magnesium [Prilosec] 20 mg ORAL DAILY 04/29/19 Allergies/Adverse Reactions: Allergies Allergy/AdvReac Type Severity Reaction Status Date / Time codeine AdvReac Nausea Verified 11/30/23 06:44 metformin [From Glucophage] AdvReac Nausea Verified 11/30/23 06:44 oxycodone AdvReac Nausea Verified 11/30/23 06:44 Anes History & Medical History - Anesthetic History Anesthesia Complications: reports: No previous complications Family history of Anesthesia Complications: Denies - Medical History Cardiovascular: reports: Hypertension (NO CP/SOB), High cholesterol Pulmonary: reports: None Gastrointestinal: reports: GERD, Colon polyps Urinary: reports: None Neuro: reports: None Musculoskeletal: reports: None Endocrine/Autoimmune: reports: Type 2 diabetes Blood Disorders: reports: None Skin: reports: None Smoking Status: Former smoker Psychosocial: reports: No issues indicated - Surgical History General: reports: Colonoscopy Results - EKG Results EKG Comparison: Reviewed EKG Exam Dental: WNL Mouth Opening: Can't Open Mouth Neck Mobility: Normal Respiratory: Lungs clear Cardiovascular: Regular rate Plan Anesthesia Type: MAC Consent for Procedure(s) Verified and Reviewed: Yes Code Status: Attempt Resuscitation ASA classification: 2-Mild systemic disease Is this case an emergency?: No
--- NOTE | 2023-11-30 08:12 | OPERATIVE REPORT ---
Operative Report - Other Other Information/Narrative: Date of Surgery: 11/30/23 Preop Dx: Visually significant cataract left eye. This was the first cataract surgery. Postop Dx: Same Procedure: Phacoemulsification with posterior chamber toric intraocular lens implant left eye Surgeon: Dr. Sd Cruz Anesthesia: Monitored anesthesia care Complications: None Operative Indications: This is a 78-year-old M with progressive vision loss in the left eye due to 4+ nuclear sclerotic cataract. Best corrected visual ac uity was 20/25 with glare to 20/100 vision in the left eye. Indications for surgery were: - Overall decrease in vision - Difficulty seeing words on a computer screen - Difficulty reading - Difficulty driving in low light or at night - Difficulty driving at night because of headlights from other vehicles - Difficulty with glare or bright lights in any situation - Decreased acuity with firearms The patient was consented at length concerning the risks and benefits of cataract surgery after which the patient expressed a desire to proceed with surgery. Operative Procedure: The patients cornea was marked in the pre-surgical area to indicate the axis for the toric intraocular lens. The patient was taken into OR#3 and placed under monitored anesthesia care. A surgical time-out was conducted confirming correct patient, correct procedure, and correct surgical site. The patient was given topical anesthesia and then prepped and draped in the usual sterile fashion. The eye was entered at the 6 and 3 oclock positions. Intracameral Shugarcaine was injected into the anterior chamber followed by a dispersive viscoelastic. A continuous-tear curvilinear capsulorhexis was performed. The nucleus was hydrodissected and phacoemulsified. The cortex was evacuated using automated infusion and aspiration. A cohesive viscoelastic was injected into the capsular bag and a 23.0 diopter toric intraocular lens was inserted into the bag and rotated to axis 177. Infusion and aspiration were used to evacuate the viscoelastic materials from the eye and the IOL was verified to remain on axis. The wounds were hydrated and the eye inflated to physiologic pressure using balanced salt solution. Approximately 0.25ml of a mixture of triamcinolone and moxifloxacin was injected trans- sclerally into the vitreous in the inferotemporal quadrant using a 30 gauge cannula. An additional 0.25ml of a mixture of triamcinolone and moxifloxacin was injected subconjunctivally in the superior quadrant for infection and inflammation prophylaxis. Wound integrity was checked with Weck-Eri sponges and the IOL axis was once again verified to be on the correct axis. The patient was taken from the operating room in good condition and given post-op instructions.
[2023-11-30 08:20] VITALS: O2SAT 96
[2023-11-30 08:30] VITALS: BP 122/71
--- NOTE | 2023-11-30 10:38 | ANESTHESIA POST OP EVALUATION ---
Anesthesia Post Eval - Post Anesthesia Eval Vitals: Last Vital Signs Temp 36.8 C 11/30/23 08:15 Pulse 55 L 11/30/23 08:20 Resp 12 11/30/23 08:20 BP 122/71 11/30/23 08:20 Pulse Ox 96 11/30/23 08:20 O2 Flow Rate CV Function Including HR & BP: Stable Pain Control: Satisfactory Nausea & Vomiting: Negative Mental Status: Baseline Respiratory Status: Airway Patent Hydration Status: Satisfactory Anesthesia Complications: None
== END 2023-11-30 06:27 | disposition home or self-care (01) ==
LOC: SDS 06:26
PROVIDERS: ATTEND Ophthalmology
DX: E11.36 Type 2 diabetes mellitus with diabetic cataract (principal); H25.12 Age-related nuclear cataract, left eye; I10 Essential (primary) hypertension; Z87.891 Personal history of nicotine dependence
CPT/HCPCS: 66984; A9270; J3490; J7120; V2632; V2787

== ENCOUNTER 2024-01-25 07:41 | Outpatient (CLI) | payer MEDICARE, OTHER ==
[2024-01-25 08:20] LABS: THYROID STIMULATING HORMONE 2.1 uIU/mL (0.34-5.60)
[2024-01-25 10:08] LABS: ESTIMATED AVERAGE GLUCOSE 105 mg/dL (70-100); HEMOGLOBIN A1c% 5.3 % (4.27-6.07)
== END 2024-01-25 07:42 | disposition home or self-care (01) ==
LOC: LAB 07:41
PROVIDERS: ATTEND Nurse Practitioner
DX: E11.9 Type 2 diabetes mellitus without complications (principal); E04.2 Nontoxic multinodular goiter
CPT/HCPCS: 36415; 82043; 82570; 83036; 84439; 84443

== ENCOUNTER 2024-02-01 06:20 | Day surgery (SDC) | payer MEDICARE, OTHER ==
[2024-02-01] MEDS: LACTATED RINGERS 1,000 ML IV ONE ×2 (06:24→07:55)
[2024-02-01] MEDS ORDERED: BSS/LIDOCAINE/EPINEPHRINE 1 ML VIAL ONE (06:52)
[2024-02-01] MEDS ORDERED: EPINEPHrine 1 MG/ML AMP ONE (06:52)
[2024-02-01] MEDS ORDERED: TRIAMCIN/MOXIFLOX OPHTHALMIC 0.6 ML VIAL IO ONE (06:52)
[2024-02-01] MEDS ORDERED: BRIMONIDINE 0.2% OPHTH DROPS 5 ML ONE (06:52)
[2024-02-01] MEDS ORDERED: TIMOLOL 0.5% OPHTH DROPS ONE (06:52)
[2024-02-01] MEDS ORDERED: ACETYLCHOLINE 20 MG/2 ML KIT IO ONE (06:55)
--- NOTE | 2024-02-01 07:16 | ANESTHESIA ---
Pre-Anesthesia VS, & Labs - Diagnosis R cataract - Procedure R PhacoIOL Vital Signs: Temp Pulse Resp BP Pulse Ox O2 Flow Rate 36.8 C 68 16 144/72 H 100 02/01/24 06:42 02/01/24 06:42 02/01/24 06:42 02/01/24 06:42 02/01/24 06:42 Height: 5 ft 8 in Weight (kg): 81.8 kg Body Mass Index: 27.4 BMI Classification: Overweight - NPO >8 hours - Lab Results Current Lab Results: Laboratory Tests 02/01/24 06:54: POC Whole Bld Glucose 110 H Home Medications and Allergies Home Medications: Ambulatory Orders hydroCHLOROthiazide [Hydrodiuril] 12.5 mg ORAL DAILY 01/31/24 Simvastatin 40 mg PO HS 04/26/19 ramipriL [Ramipril] 5 mg PO BID 04/26/19 Omeprazole Magnesium [Prilosec] 20 mg ORAL DAILY 04/29/19 hydroCHLOROthiazide [Hydrodiuril] 12.5 mg ORAL DAILY 01/31/24 Allergies/Adverse Reactions: Allergies Allergy/AdvReac Type Severity Reaction Status Date / Time codeine AdvReac Nausea Verified 02/01/24 06:45 metformin [From Glucophage] AdvReac Nausea Verified 02/01/24 06:45 oxycodone AdvReac Nausea Verified 02/01/24 06:45 Anes History & Medical History - Anesthetic History Anesthesia Complications: reports: No previous complications Family history of Anesthesia Complications: Denies Family history of Malignant Hyperthermia: Denies - Medical History Cardiovascular: reports: Hypertension, High cholesterol Pulmonary: reports: None Gastrointestinal: reports: None Urinary: reports: None Neuro: reports: None Musculoskeletal: reports: None Endocrine/Autoimmune: reports: Type 2 diabetes Blood Disorders: reports: None Skin: reports: None Smoking Status: Former smoker - Surgical History General: reports: Colonoscopy Eyes Ears Nose Throat (EENT): reports: Cataracts Exam General: Alert Dental: WNL Mouth Openin Fingerbreadth Neck Mobility: Normal Mallampati classification: II Thyromental Distance: 4-6 cm Respiratory: Lungs clear Cardiovascular: Regular rate Plan Anesthesia Type: MAC Consent for Procedure(s) Verified and Reviewed: Yes Code Status: Attempt Resuscitation ASA classification: 2-Mild systemic disease Is this case an emergency?: No
[2024-02-01] MEDS ORDERED: MIDAZOLAM 2 MG/2 ML VIAL ONE (07:33)
[2024-02-01] MEDS: EPINEPHrine 1 MG/ML AMP IR ONE (07:38)
[2024-02-01] MEDS: BRIMONIDINE 0.2% OPHTH DROPS 5 ML OPTH ONE (07:38)
[2024-02-01] MEDS: BSS/LIDOCAINE/EPINEPHRINE 1 ML SYRINGE IO ONE (07:39)
[2024-02-01] MEDS: TRIAMCIN/MOXIFLOX OPHTHALMIC 0.6 ML VIAL IO ONE (07:39)
[2024-02-01] MEDS: TIMOLOL 0.5% OPHTH DROPS OPTH ONE (07:39)
[2024-02-01] MEDS: PROPARACAINE 0.5% OPHTH DROPS 15 ML RIGHTEYE ONE (07:39)
[2024-02-01] MEDS: VANCOMYCIN OPHTH (TOPICAL) 10 MG/ML SYRINGE TOP ONE (07:39)
--- NOTE | 2024-02-01 08:05 | OPERATIVE REPORT ---
Operative Report - Other Other Information/Narrative: Date of Surgery: 02/01/24 Preop Dx: Visually significant cataract right eye. Cataract surgery was performed in the left eye on . Postop Dx: Same Procedure: Phacoemulsification with posterior chamber toric intraocular lens implant right eye Surgeon: Dr. Sd Cruz Anesthesia: Monitored anesthesia care Complications: None Operative Indications: This is a 79-year-old M with progressive vision loss in the right eye due to 3-4+ nuclear sclerotic cataract. Best corrected visual acuity was 20/25 with glare to 20/80 vision in the right eye. Indications for surgery were: - Overall decrease in vision - Difficulty seeing words on a computer screen - Difficulty reading - Difficulty driving in low light or at night - Difficulty driving at night because of headlights from other vehicles - Difficulty with glare or bright lights in any situation - Decreased acuity with firearms The patient was consented at length concerning the risks and benefits of cataract surgery after which the patient expressed a desire to proceed with surgery. Operative Procedure: The patients cornea was marked in the pre-surgical area to indicate the axis for the toric intraocular lens. The patient was taken into OR#3 and placed under monitored anesthesia care. A surgical time-out was conducted confirming correct patient, correct procedure, and correct surgical site. The patient was given topical anesthesia and then prepped and draped in the usual sterile fashion. The eye was entered at the 6 and 3 oclock positions. Intracameral Shugarcaine was injected into the anterior chamber followed by a dispersive viscoelastic. A continuous-tear curvilinear capsulorhexis was performed. The nucleus was hydrodissected and phacoemulsified. The cortex was evacuated using automated infusion and aspiration. A cohesive viscoelastic was injected into the capsular bag and a 22.5 diopter toric intraoc ular lens was inserted into the bag and rotated to axis 010. Infusion and aspiration were used to evacuate the viscoelastic materials from the eye and the IOL was verified to remain on axis. The wounds were hydrated and the eye inflated to physiologic pressure using balanced salt solution. Approximately 0.25ml of a mixture of triamcinolone and moxifloxacin was injected trans- sclerally into the vitreous in the inferotemporal quadrant using a 30 gauge cannula. An additional 0.25ml of a mixture of triamcinolone and moxifloxacin was injected subconjunctivally in the superior quadrant for infection and inflammation prophylaxis. Wound integrity was checked with Weck-Eri sponges and the IOL axis was once again verified to be on the correct axis. The patient was taken from the operating room in good condition and given post-op instructions.
[2024-02-01 08:11] VITALS: BP 119/66; O2SAT 97
--- NOTE | 2024-02-01 09:50 | ANESTHESIA POST OP EVALUATION ---
Anesthesia Post Eval - Post Anesthesia Eval Vitals: Last Vital Signs Temp 36 C L 02/01/24 08:00 Pulse 61 02/01/24 08:00 Resp 16 02/01/24 08:00 BP 119/66 02/01/24 08:00 Pulse Ox 97 02/01/24 08:00 O2 Flow Rate CV Function Including HR & BP: Stable Pain Control: Satisfactory Nausea & Vomiting: Negative Mental Status: Baseline Respiratory Status: Airway Patent Hydration Status: Satisfactory Anesthesia Complications: None
== END 2024-02-01 06:21 | disposition home or self-care (01) ==
LOC: SDS 06:20
PROVIDERS: ATTEND Ophthalmology
DX: E11.36 Type 2 diabetes mellitus with diabetic cataract (principal); H25.11 Age-related nuclear cataract, right eye; Z98.42 Cataract extraction status, left eye; Z87.891 Personal history of nicotine dependence
CPT/HCPCS: 66984; A9270; J7120; V2632; V2787